=== PATIENT | female | born 1950 ===

== ENCOUNTER 2022-10-31 22:19 | Inpatient (IN) | payer MEDICARE, SELFPAY ==
[2022-10-31] VITALS (11 sets, daily range): PULSE 66–95; RESP 21–28; TEMP 36.6; O2SAT 93–97
--- NOTE | ~2022-10-31 | US_ITS ---
EXAMINATION: US venous doppler [facility] DATE: 11/01/2022 12:53 INDICATION: Hypoxia with dyspnea. TECHNIQUE: Grayscale ultrasound images without and with compression and Doppler ultrasound images of the bilateral lower extremity veins were obtained. COMPARISON: None. FINDINGS: The visualized portions of right common femoral vein, profunda (deep) femoral vein, femoral vein, pop liteal vein, posterior tibial veins, peroneal veins, gastrocnemius vein and greater saphenous vein ou tflow are patent. The visualized portions of left common femoral vein, profunda femoral vein, femoral vein, popliteal v ein, posterior tibial veins, peroneal veins, gastrocnemius vein and greater saphenous vein outflow ar e patent. IMPRESSION: 1. No deep venous thrombosis in either lower limb. Reviewed, dictated and finalized at location A. S OFFICE ASSISTANT
--- NOTE | ~2022-10-31 | XR_ITS ---
EXAMINATION: XR chest 1V portable INDICATION: Decreased breath sounds on the right TECHNIQUE: Portable AP chest at 1220 hours COMPARISON: 10/31/2022 FINDINGS: Bibasilar airspace opacities persist without significant change. No pleural effusion or pne umothorax. The heart size is normal. IMPRESSION: 1. Stable bibasilar airspace opacities, consistent with atelectasis versus pneumonia. Reviewed, dictated and finalized at location L. NS SERVICE CONDUCTOR IMPRESSION: 1. Stable bibasilar airspace opacities, consistent with atelectasis versus pneu monia.
--- NOTE | ~2022-10-31 | CT_ITS ---
EXAMINATION: CT chest abdomen pelvis w con DATE: 11/01/2022 02:12 INDICATION: Hypoxia. Free intraperitoneal gas. TECHNIQUE: Computed tomography (CT) of the chest, abdomen, and pelvis was performed with 100 mL Omnip aque 350 intravenous contrast. Automated exposure control and iterative reconstruction technique were employed. The dose-length product was 1057.40 mGy-cm. COMPARISON: Chest single view 10/31/2022 FINDINGS: CHEST CT: There is mild atelectasis in the upper lobes. There are airspace opacities in the lower lobes with vo lume loss, likely atelectasis. No pleural effusion. There are nodules in the right thyroid lobe measu ring up to at least 18 mm. There is total occlusion of left common carotid artery. There are no patho logically enlarged lymph nodes. The heart size is normal. There are coronary artery calcifications. N o pericardial effusion. There is mild thoracic spondylosis. ABDOMEN/PELVIS CT: The liver, gallbladder, spleen, pancreas, adrenal glands, and kidneys are normal. There is diverticul osis of the colon without evidence of diverticulitis. There is a gastrostomy tube in expected positio n. There are no dilated loops of bowel. The appendix is normal. There is free intraperitoneal gas in the anterior abdomen. There is moderate stenosis of celiac axis and mild stenosis of superior mesente ignacio artery. There is no significant stenosis of inferior mesenteric artery. There are no pathological ly enlarged lymph nodes. There is no free intraperitoneal fluid. There is a benign bone island in rig ht pelvis. There is mild lumbar spondylosis. There is a sclerotic lesion in L1 vertebral body, most l ikely a hemangioma. IMPRESSION: 1. Airspace opacities in the lungs with volume loss, worst in the lower lobes, likely atelectasis. Pn eumonia cannot be excluded. 2. Free intraperitoneal gas, likely secondary to the gastrostomy tube. 3. Multinodular goiter. Consider thyroid ultrasound for risk stratification. 4. 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 Reviewed, dictated and finalized at location A. ARY MEDIA SPECIALIST IMPRESSION: 1. Airspace opacities in the lungs with volume loss, worst in the lower lobes, likely atelectasis. Pneumonia cannot be excluded. 2. Free intraperitoneal gas, likely secondary to the gastrostomy tube. 3. Multinodular goiter. Consider thyroid ultrasound for risk stratification. 4. 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
--- NOTE | ~2022-10-31 | XR_ITS ---
EXAMINATION: XR chest 1V portable Exam Date/Time: 10/31/2022 22:55 LINE FISHER HISTORY: dyspnea/OSBALDO. HX HTN Comparison: None available. RESULT: Lines, tubes, and devices: None. Lungs and pleura: Low lung volumes with crowding and streaky bibasilar opacities. Mild diffuse inter stitial pattern. Cardiomediastinal silhouette: Unremarkable. Other: Curvilinear gas collections under both hemidiaphragms. No acute osseous finding. IMPRESSION: Pneumoperitoneum. Senescent change versus mild interstitial edema, with bibasilar atelectasis. Results reported telephonically to Dr. Elizondo by Dr. Arellano at 11:03 PM on 10/31/2022. Reviewed, dictated and finalized at location K. FISHER IMPRESSION: Pneumoperitoneum. Senescent change versus mild interstitial edema, with bibasil ar atelectasis. Results reported telephonically to Dr. Elizondo by Dr. Arellano at 11:03 PM on 2022.
--- NOTE | 2022-10-31 22:24 | ECG_ITS ---
Measurements Intervals [place] Rate: 92 P: 23 WV: 133 QRS: 37 QRSD: 83 T: 34 QT: 324 QTc: 402 Interpretive Statements SINUS RHYTHM NONSPECIFIC T-WAVE ABNORMALITY- DIFFUSE LEADS BASELINE WANDER- V1-V4 BORDERLINE ECG NO PREVIOUS ECG AVAILABLE FOR COMPARISON Electronically Signed On 11-01-2022 6:44:39 MICROFICHE DUPLICATOR by Juan Johnson D.O.
--- NOTE | 2022-10-31 22:41 | PC.NURSE ---
Nash Velásquez called at this time and voicemail to call hospital back [place] at this time.
--- NOTE | 2022-10-31 22:45 | PC.NURSE ---
Noe Velásquez, sibling, voicemail left and Rosa Arora, sibling called at this time, no voicemailbox available for Rosa.
[2022-10-31 22:55] LABS: Basophils Absolute Auto 0.1 K/mm3 (0.0-0.1); Basophils Percent Auto 0.6 % (0.2-1.2); Eosinophils Absolute Auto 0.1 K/mm3 (0-0.3); Hematocrit 43.5 % (37.0-47.0); Hemoglobin 13.7 g/dL (12.0-15.0); Immature Granulocyte Absolute 0.05 K/mm3 (0.00-0.031); Immature Granulocyte Percent A 0.5 % (0-0.5); Lymphocytes Absolute Auto 1.03 K/mm3 (0.9-3.2); Lymphocytes Percent Auto 9.4 % (18.3-44.2); Mean Corpuscular HGB Conc 31.5 g/dl (32-36); Mean Platelet Volume 10.3 fl (7.4-10.4); Monocytes Absolute Auto 0.8 K/mm3 (0.1-0.6); Monocytes Percent Auto 7.5 % (2.6-8.5); Neutrophils Absolute Auto 8.9 K/mm3 (1.3-6.7); Platelet Count Result 292 k/mm3 (150-375); Red Blood Count 4.73 M/mm3 (4.2-5.4); Red Cell Distribution Width 13.7 % (11.5-14.5)
--- NOTE | 2022-10-31 23:04 | PC.NURSE ---
Noe Velásquez called back at this time, gave pt update status and received info that Brothdora Jimenez is medical POA of pt. [phone] called and voicemail left at this time.
[2022-10-31 23:05] LABS: Alveolar/Arterial O2 Gradient 577.8 mmHg; Base Excess ABG 4.4 mEq/l (+/-2.0); Carboxyhemoglobin 0.3 % THb (0-2.0); Device NON-INVASIVE VENT; Fractional Inspired Oxygen 100 %; HCO3 ABG 29.7 mEq/l (22.0-26.0); Methemoglobin ABG 0.3 %THb (0-1.5); Modified Allen's Test Unable to perform; Oxygen Content ABG 18.7 %vol (16.0-22.0); Oxygen Saturation ABG 96.8 % (95.0-100.0); Oxyhemoglobin 95.4 % THb (90.0-100.0); PCO2 ABG 46.8 mmHg (35.0-45.0); PO2 ABG 88.4 mmHg (80.0-100.0); PO2 FiO2 Ratio Arterial Blood 0.88 %; Site Drawn RIGHT RADIAL; Total Hemoglobin 13.9 g/dL (12.0-18.0)
[2022-10-31 23:06] LABS: Non-Invasive Expiratory Pressure 5 CMH2O; Non-Invasive Inspiratory Pressure 10 CMH2O; Non-Invasive Vent Rate 16 /MIN
[2022-10-31 23:06] LABS: Magnesium 2.2 mg/dL (1.6-2.3)
--- NOTE | 2022-10-31 23:13 | PC.NURSE ---
Tony Sage's called hospital back and pt update given. This nurse spoke with staff at [facility] and provided fax number for pt info to be sent to hospital at this time. Dr. Elizondo giving pt update over telephone at this time.
[2022-10-31 23:32] LABS: Alanine Aminotransferase 30 U/L (6-35); Albumin Level 3.9 g/dL (3.5-5.1); Alkaline Phosphatase 88 U/L (38-126); Anion Gap 6 mmol/L (8-16); Aspartate Amino Transferase 32 U/L (14-36); Bilirubin,Total 0.7 mg/dL (0.2-1.3); Blood Urea Nitrogen 22 mg/dL (7-17); Calcium 8.7 mg/dL (8.4-10.2); Carbon Dioxide 30 mmol/L (22-30); Chloride 105 mmol/L (98-107); Estimated Glomerular Filt Rate > 60; Glucose 161 mg/dL (65-110); Sodium 141 mmol/L (137-145)
[2022-10-31 23:40] LABS: NT Pro B Type Natriuretic Pept 158 pg/mL (19.9-100)
[2022-10-31 23:50] LABS: Influenza A QL RT-PCR Negative (Negative); Influenza B QL RT-PCR Negative (Negative); RSV RNA, RT-PCR Negative (Negative); SARS-CoV-2 RNA PCR Negative
[2022-11-01] VITALS (42 sets, daily range): BP systolic 87–123; BP diastolic 42–104; PULSE 65–84; RESP 14–33; TEMP 37–37.7; O2SAT 58–97; BMI 26.9
--- NOTE | 2022-11-01 00:12 | ED.SOB ---
HPI - SOB/Dyspnea General Chief Complaint: Shortness of Breath/Dyspnea Stated Complaint: DIFFICULTY IN BREATHING, LOW SPO2% Time Seen by Provider: 10/31/22 22:22 History of Present Illness HPI Narrative: 72-year-old female with a history of recent MCA presenting with increased difficulty breathing, [facility]. Patient able to communicate that she is having some trouble breathing, however no chest pain or abdominal pain. Related Data Allergies Allergy/AdvReac Type Severity Reaction Status Date / Time erythromycin base Allergy Itching Verified 10/31/22 23:16 Review of Systems Review of Systems: CONST: No fever. HEENT: No sore throat C/V: No chest pain RESP: Difficulty breathing GI: No abdominal pain : No dysuria. M/S: No joint pain. SKIN: No rash. NEURO: [No headache] PSYCH: [No depression] [facility] Past Medical History Medical History (Updated 11/01/22 @ 03:40 by Rose Elizondo MD) Dementia Depression Hyperlipidemia Hypertension Ischemic stroke Type 2 diabetes mellitus with hyperglycemia Surgical History Surgical History (Updated 11/01/22 @ 02:52 by Rose Elizondo MD) Status post insertion of percutaneous endoscopic gastrostomy (PEG) tube Social History Social History Smoking status: Former smoker Exam Narrative: EXAMINATION OF ORGAN SYSTEMS/BODY AREAS: Constitutional: Vital signs per nursing GENERAL: Tachypneic, dypsneic HEAD: Normal with no signs of head trauma. EYES: conjunctiva normal ENT: Hearing grossly intact LUNGS: Rhonchi bilaterally with labored respirations HEART: [Regular rate and rhythm] ABD: [Soft], [nontender to palpation], no distension, PEG tube in place EXT: Left sided weakness SKIN: [No rashes or lesions.] NEURO: [Alert.] PSYCH: Normal affect Course Vital Signs Vital signs: Vital Signs Temperature 97.8 F 10/31/22 22:25 Pulse Rate 90 10/31/22 22:25 Respiratory Rate 28 H 10/31/22 22:25 Pulse Oximetry 96 10/31/22 22:25 Oxygen Delivery Non-Rebreather Mask 10/31/22 22:25 Oxygen Flow Rate 10 10/31/22 22:25 Temperature 97.8 F 10/31/22 22:25 Pulse Rate 79 11/01/22 03:05 Respiratory Rate 25 H 11/01/22 03:05 Blood Pressure 88/59 L 11/01/22 02:46 Pulse Oximetry 90 11/01/22 01:47 Oxygen Delivery High Flow Therapy with Nasal Cannula 11/01/22 01:47 Oxygen Flow Rate 60 11/01/22 01:47 Fraction of Inspired Oxygen 92 11/01/22 01:47 MDM - SOB/Dyspnea MDM Narrative Medical decision making narrative: Further information obtained from EMS, EMR from prior hospitalization, and family collateral. 72-year-old female presenting with difficulty breathing, was quite hypoxic when she arrived, I did initially immediately start her on BiPAP with immediate improvement in her symptoms. Differential included pneumonia, aspiration pneumonitis, other infection such as UTI or intra-abdominal etiology, less concern for PE without DVT symptoms or chest pain. EKG - 12-Lead: Performed at 2225. Interpreted by me. [Sinus rhythm]. Rate 92. [Normal] axis. NJ-interval [normal]. QRS duration [normal]. QTc [normal]. [No ST segment elevation or depression]. [T-wave normal]. Impression: No EKG evidence of acute ischemia or dysrhythmia. Chest x-ray on my interpretation at bedside showed free air under the diaphragm, she did recently have a PEG tube so I suspect this is the cause but given her extreme distress I will obtain CT for characterization, and switch her to high flow nasal cannula; also immediately called general surgeon on-call. I did call and speak with her DPOA, Tony Jerry, who stated that per recent paperwork they had drawn up, she wanted to be kept comfortable and did not want any invasive procedures or anything to keep her alive through artificial means. To clarify, she is DNR/DNI. CT shows right lower lobe/left lower lobe consolidation concerning for possible aspiration versus pneumonia. CT abdo
[2022-11-01] MEDS: LACTATED RINGERS 1,000 ML 999 ML IV CONT (01:19)
[2022-11-01] MEDS: metroNIDAZOLE 500 MG/ISO 100ML 500 MG/100 ML BAG 100 MG IVPB ×2 (02:57→12:17)
--- NOTE | 2022-11-01 06:31 | ADMGEN ---
This patient, Marah Jerry, was admitted to Intensive Care Unit-1 at 0523. Patient/family oriented to hospital policies and general routines including ID bracelet, bed and alarms, visiting hours, pain management, procedures, bathroom and other care routines, personal items, smoking policy, room service/diet, and visiting hours. Information on how to activate the Rapid Response Team has been discussed. Patient/Family are encouraged to report perceived risks to care and to ask questions if they do not understand what they are told or what they should do.
--- NOTE | 2022-11-01 07:50 | PM.IMHP ---
H&P: HPI History of Present Illness Date/Time: 11/01/22 07:50 Chief Complaint: Difficulty breathing Narrative: 72 y/o F with PMH significant for schizophrenia, HTN, HLD, DM, depression, h/o recent MCA CVA leaving her npo and G-tube dependent is p/w SOB found to be hypoxic in the ER and improved on BIPAP. She is currently on 60L 95%FiO2 and satting 90%. She is DNR/DNI. She was started on vancomycin, cefepime and Flagyl in the ER, these will be continued. She was recently discharged to the rehab facility on October 31, 2022 after her stroke where she was taken care of at [facility] from Oct 23-. Based on the H&P from the rehab facility on October 31, the patient was PEG tube dependent, nonresponsive to questioning, and followed commands intermittently upon arrival. Of note, she was treated for aspiration pneumonia after her left MCA stroke at [facility] with Rocephin and Flagyl. Further records from [facility] pending, unable to find start and end date of antibiotics from that time. Chest x-ray in the ER showed pneumoperitoneum likely secondary to PEG tube placement as well as interstitial edema and atelectasis. CT of chest abdomen and pelvis showed volume loss in the bilateral lower lobes concerning for atelectasis versus pneumonia, multinodular goiter and total occlusion of left common carotid artery. Labs were significant for a white count of 11, ABG that was essentially normal, she was negative for flu, RSV and COVID. D-dimer pending. Review of Systems Review of Systems: ROS unobtainable: Yes unobtainable due to mental status PMFSH Past Medical History Medical History Dementia Depression Hyperlipidemia Hypertension Ischemic stroke Type 2 diabetes mellitus with hyperglycemia Surgical History Surgical History Status post insertion of percutaneous endoscopic gastrostomy (PEG) tube Family History Family History Other Unknown family medical history Social History Social History Smoking status: Former smoker Alcohol intake: unknown Substance use: unknown Spiritual care concerns: No Meds Home Medications and Allergies Home Medications Medication Instructions Recorded Confirmed Type amlodipine 10 mg tablet (Norvasc) 10 mg feeding tube DAILY 11/01/22 11/01/22 History aspirin 81 mg tablet,delayed 81 mg feeding tube DAILY 11/01/22 11/01/22 History release (Adult Low Dose Aspirin) atorvastatin 80 mg tablet 80 mg feeding tube HS 11/01/22 11/01/22 History carvedilol 25 mg tablet 25 mg feeding tube BID 11/01/22 11/01/22 History donepezil 10 mg tablet 10 mg feeding tube DAILY 11/01/22 11/01/22 History ipratropium 0.5 mg-albuterol 3 mg 3 ml inhalation Q4H PRN Shortness 11/01/22 11/01/22 History (2.5 mg base)/3 mL nebulization Of Breath Or Wheezing soln lisinopril 20 mg tablet 20 mg feeding tube DAILY 11/01/22 11/01/22 History Allergies Allergy/AdvReac Type Severity Reaction Status Date / Time erythromycin base Allergy Itching Verified 10/31/22 23:16 Vital Signs Vital Signs - 24 hr 10/31/22 22:25 10/31/22 22:28 10/31/22 22:28 Temperature 97.8 F Pulse Rate 90 85 Respiratory Rate 28 H Blood Pressure Pulse Oximetry 96 93 Oxygen Delivery Non-Rebreather Mask Non-Rebreather Mask Oxygen Flow Rate 10 10 Fraction of Inspired Oxygen 10/31/22 22:52 11/01/22 00:16 11/01/22 01:47 Temperature Pulse Rate 81 Respiratory Rate 28 H Blood Pressure Pulse Oximetry 96 97 90 Oxygen Delivery BiPAP High Flow Nasal Cannula High Flow Therapy with Na Oxygen Flow Rate 10 60 Fraction of Inspired Oxygen 92 10/31/22 22:26 10/31/22 22:33 10/31/22 22:45 Temperature Pulse Rate 95 82 83 Respi
[2022-11-01] MEDS: FUROSEMIDE INJ 40 MG/4 ML VIAL IV PUSH (08:27)
[2022-11-01] MEDS: ASPIRIN 81 MG CHEWABLE TABLET FEED TUBE (08:27)
[2022-11-01 08:36] LABS: Basophils Absolute Auto 0.1 K/mm3 (0.0-0.1); Basophils Percent Auto 0.4 % (0.2-1.2); Eosinophils Percent Auto 0.2 % (0-4.4); Hematocrit 38.2 % (37.0-47.0); Hemoglobin 12.4 g/dL (12.0-15.0); Immature Granulocyte Absolute 0.03 K/mm3 (0.00-0.031); Immature Granulocyte Percent A 0.3 % (0-0.5); Lymphocytes Absolute Auto 0.98 K/mm3 (0.9-3.2); Lymphocytes Percent Auto 8.5 % (18.3-44.2); Mean Corpuscular HGB Conc 32.5 g/dl (32-36); Mean Corpuscular Hemoglobin 28.5 pg (26-34); Mean Corpuscular Volume 87.8 fl (80-100); Mean Platelet Volume 10.2 fl (7.4-10.4); Monocytes Percent Auto 8.6 % (2.6-8.5); Neutrophils Absolute Auto 9.5 K/mm3 (1.3-6.7); Platelet Count Result 274 k/mm3 (150-375); Red Blood Count 4.35 M/mm3 (4.2-5.4); Red Cell Distribution Width 13.9 % (11.5-14.5); White Blood Count 11.6 K/mm3 (4.5-10.0)
[2022-11-01 08:52] LABS: Alanine Aminotransferase 27 U/L (6-35); Albumin Level 3.6 g/dL (3.5-5.1); Alkaline Phosphatase 67 U/L (38-126); Anion Gap 5 mmol/L (8-16); Aspartate Amino Transferase 27 U/L (14-36); Bilirubin,Total 0.4 mg/dL (0.2-1.3); Blood Urea Nitrogen 22 mg/dL (7-17); Calcium 8.6 mg/dL (8.4-10.2); Carbon Dioxide 33 mmol/L (22-30); Chloride 101 mmol/L (98-107); Estimated CRCL calculation 61 ml/min; Estimated Glomerular Filt Rate > 60; Glucose 177 mg/dL (65-110); Potassium 3.8 mmol/L (3.4-5.0); Sodium 139 mmol/L (137-145)
[2022-11-01] MEDS: PANTOPRAZOLE SODIUM IV 40 MG VIAL IV PUSH (09:14)
[2022-11-01] MEDS: DONEPEZIL HCL 10 MG TABLET FEED TUBE (09:14)
[2022-11-01] MEDS: ENOXAPARIN 40 MG/0.4 ML SYRINGE SUB-Q (09:15)
[2022-11-01 09:36] LABS: D Dimer 2.78 ug/mL (<0.48)
[2022-11-01] MEDS: methylPREDNISolone SOD SUCC 125 MG VIAL 60 MG IV PUSH (12:18)
--- NOTE | 2022-11-01 12:53 | PM.CNPUL ---
Assessment and Plan Assessment and plan (1) Acute respiratory failure with hypoxia: Code(s): J96.01 - Acute respiratory failure with hypoxia Status: Acute Assessment and Plan: Patient with a recent stroke, dysphagia status post PEG on 10/27/2022, chest x-ray with bibasilar infiltrates and now with hypoxemic respiratory failure. Etiology of hypoxemic respiratory failure includes aspiration, aspiration pneumonia, healthcare associated pneumonia, and less likely pulmonary embolism. Agree with vancomycin, cefepime and Flagyl. The patient has no cough and cannot expectorate and the nurse has been doing deep suction. There is no mucus plugging on the most recent chest x-ray. her D-dimer is high at 2.78, she has negative lower extremity Dopplers. I have a low clinical suspicion for PE. Will discuss with Neurology the risk benefit analysis for empiric anticoagulation. I spoke with the POA at the bedside,Tony, and the patient is doing not resuscitate code status. Currently the patient is on high-flow nasal cannula 60 L, 93% FiO2 with an over line non-rebreather mask at 15 L with saturations 90%. At this time would continue these settings but if she has worsening hypoxemia would place her on BiPAP even with a free air from her recent PEG tube. I did speak with the POA regarding options of care at this time which include continuation of the current oxygen delivery device, BiPAP and discontinuation of all oxygen and making her comfort measures. He will discuss these options with the remainder of the family and let us know if they have come to a decision. Will follow with you. History of Present Illness History of Present Illness Consult date: 11/01/22 Chief complaint: Aspiration PNA/Hypoxic Narrative: 11/01/2022: This is a new pulmonary consult for hypoxemic respiratory failure. 72-year-old woman with a history of schizophrenia, dementia, diabetes mellitus type 2, hypertension, hyperlipidemia and a right MCA stroke treated at [facility] from 10/22/2022 through 10/30/2022. I have spoken with the p.o. a day any and he tells me that the patient had a left hemiparesis, could not swallow and a PEG tube was placed on 10/25/2022. The patient left [facility] on oxygen but he does not know the level. The patient could not move her left upper extremity and says he that maybe she could move her left foot at [facility]. She could not speak and communicated with blinking and shaking her head. Patient presented to [facility] Emergency Department on 10/3112/10/2021 for difficulty breathing and hypoxemic respiratory failure. The patient had rhonchi bilaterally was on 10 L non-rebreather mask with saturations 96%. BiPAP was started immediately Blood gas on BiPAP 10/5 with 100% with pH of 7.42/47/[address] of the abdomen and pelvis showed intraperitoneal air without pathology. Chest x-ray showed bibasilar infiltrates. Her white blood cell count was 11.0, creatinine was 0.6. patient was admitted to the IMU and treated with vancomycin, cefepime and Flagyl. With a free air in her abdomen she was converted to high-flow nasal cannula 60 L 93% with an overlying non-rebreather mask at 15 L. 11/01 currently the patient is on high-flow nasal cannula 60 L, 93% with an overlying non-rebreather mask on 15 L with saturations 90%. The patient is in no respiratory distress and denies any chest pain or difficulty breathing. Review of Systems Review of Systems: ROS unobtainable: Yes unobtainable due to medical condition [facility] Past Medical History Medical History Dementia Depression Hyperlipidemia Hypertension Ischemic stroke Type 2 diabetes mellitus with hyperglycemia Surgical History Surgical History Status post insertion of percutaneous endoscopic gastrostomy (P
[2022-11-01] MEDS: IPRATROPIUM BR 0.02% INH SOLN 0.5 MG/2.5 ML VIAL INHALATION (13:14)
[2022-11-01] MEDS: ALBUTEROL SULFATE NEB 2.5 MG/3 ML INH INHALATION (13:15)
[2022-11-01] MEDS: MORPHINE SULFATE INJ (*CRX) 10 MG/ML AMP 5 MG IV PUSH (16:02)
[2022-11-01] MEDS: LORazepam INJ (*CRX) 2 MG/ML VIAL IV PUSH ×2 (16:04→19:58)
[2022-11-01] MEDS: MORPHINE SULFATE (*CRX) 2 MG/ML INJ IV PUSH ×3 (16:37→18:00)
[2022-11-02] MEDS: MORPHINE SULFATE (*CRX) 2 MG/ML INJ IV PUSH ×2 (00:08→12:20)
[2022-11-02 08:00] VITALS: PULSE 96; RESP 18; O2SAT 60
--- NOTE | 2022-11-02 08:54 | PM.DS ---
DS: Admitting Diagnosis Discharge Date 11/03/22 Admitting Diagnosis sob DS: Discharge Diagnosis Discharge Diagnosis (1) Acute respiratory failure with hypoxia: Code(s): J96.01 - Acute respiratory failure with hypoxia Status: Acute (2) Aspiration pneumonia: Code(s): J69.0 - Pneumonitis due to inhalation of food and vomit Status: Acute (3) Ischemic stroke: Code(s): I63.9 - Cerebral infarction, unspecified Status: Acute (4) Hyperlipidemia: Code(s): E78.5 - Hyperlipidemia, unspecified Status: Acute (5) Type 2 diabetes mellitus with hyperglycemia: Code(s): E11.65 - Type 2 diabetes mellitus with hyperglycemia Status: Acute (6) Hypertension: Code(s): I10 - Essential (primary) hypertension Status: Acute (7) Dementia: Code(s): F03.90 - Unspecified dementia, unspecified severity, without behavioral disturbance, psychotic disturbance, mood disturbance, and anxiety Status: Acute (8) Depression: Code(s): F32.A - Depression, unspecified Status: Acute (9) Dysphagia: Code(s): R13.10 - Dysphagia, unspecified Status: Acute DS: Summary Hospital Course Hospital Course: 72-year-old woman with a history of schizophrenia, dementia, diabetes mellitus type 2, hypertension, hyperlipidemia and a right MCA stroke treated at [facility]. She could not speak and communicated with blinking and shaking her head. Patient presented to [facility] Emergency Department on 10/3112/10/2021 for difficulty breathing and hypoxemic respiratory failure.?The patient was on high-flow nasal cannula 60 L, 93% with an overlying non-rebreather mask on 15 L with saturations 90%.? The patient is in no respiratory distress and denies any chest pain or difficulty breathing. Family opted for hospice care and oxygen support was withdrawn with comfort care measures initiated. Time Spent with Patient Time attestation: Total time spent providing and/or coordinating discharge services: DS: Data Data Completed and Pending Labs on day of discharge: Labs from last 24 hours 11/01/22 09:04 D-Dimer 2.78 H Preliminary micro results at discharge 10/31/22 22:47 Blood Culture - Preliminary Blood 11/01/22 00:15 Blood Culture - Preliminary Blood Discharge Plan Discharge Attending physician on discharge: Mariely Hardy Consulting providers: John Crowell Discharging Clinician: Mariely Hardy Patient Disposition: Hospice - Medical Facility Patient Instructions: Enoxaparin (By injection), Ischemic Stroke (DC) Stand Alone Forms: General Discharge Information Discharge Medications: Discontinued atorvastatin 80 mg Tablet 80 mg feeding tube HS carvedilol 25 mg Tablet 25 mg feeding tube BID ipratropium-albuterol 0.5 mg-3 mg(2.5 mg base)/3 mL Solution For Nebulization 3 ml INHALATION Q4H PRN (Reason: Shortness Of Breath Or Wheezing) donepezil 10 mg tablet 10 mg feeding tube DAILY lisinopril 20 mg Tablet 20 mg feeding tube DAILY aspirin [Adult Low Dose Aspirin] 81 mg Tablet,Delayed Release (Dr/Ec) 81 mg feeding tube DAILY amlodipine [Norvasc] 10 mg Tablet 10 mg feeding tube DAILY Date of admission: 11/01/22 03:40 Primary Care Provider: Alessandro,Louis Jarrett Admitting Provider: Karo Sargent V. Attending physician on admission: Karo Sargent V. Condition: Critical
[2022-11-02 12:00] VITALS: BP 150/75; PULSE 100; RESP 22; TEMP 36.2; O2SAT 56
--- NOTE | 2022-11-02 13:15 | PC.NURSE ---
This patient, Marah Jerry, was transferred to [facility] on 11/02/22 at 1330. Personal belongings sent with patient. Report given to Kathleen. Appropriate documentation sent with patient.
[2022-11-02 15:23] VITALS: BP 151/84; PULSE 102; RESP 22; TEMP 35.7; O2SAT 87
--- NOTE | 2022-11-02 16:29 | PM.IMPN ---
Progress Note: A&P Assessment and Plan (1) Acute respiratory failure with hypoxia: Code(s): J96.01 - Acute respiratory failure with hypoxia Status: Acute Assessment and Plan: Continue end of life care Morphine and ativan as needed Scopolamine patch Atropine as needed Lidoderm patch (2) Aspiration pneumonia: Code(s): J69.0 - Pneumonitis due to inhalation of food and vomit Status: Acute (3) Ischemic stroke: Code(s): I63.9 - Cerebral infarction, unspecified Status: Acute (4) Hyperlipidemia: Code(s): E78.5 - Hyperlipidemia, unspecified Status: Acute (5) Type 2 diabetes mellitus with hyperglycemia: Code(s): E11.65 - Type 2 diabetes mellitus with hyperglycemia Status: Acute (6) Hypertension: Code(s): I10 - Essential (primary) hypertension Status: Acute (7) Dementia: Code(s): F03.90 - Unspecified dementia, unspecified severity, without behavioral disturbance, psychotic disturbance, mood disturbance, and anxiety Status: Acute (8) Depression: Code(s): F32.A - Depression, unspecified Status: Acute (9) Dysphagia: Code(s): R13.10 - Dysphagia, unspecified Status: Acute Subjective Date/time seen: 11/02/22 16:29 Interval history: Patient unresponsive, brow somewhat furrowed. No other concerns, family at bedside. Review of Systems Review of Systems: ROS unobtainable: Yes unobtainable due to mental status Exam Narrative: General: Unresponsive HEENT: Atraumatic, normocephalic, mucous membranes moist CV: Tachycardic Lungs: Agonal breathing, coarse breath sounds throughout Abdomen: Nondistended, hypoactive bowel sounds Extremities: No mottling nor edema noted Objective Data Vital Signs Vital Signs: Vital Signs - 24 hr 11/01/22 17:30 11/01/22 20:00 11/01/22 20:00 Temperature 99.9 F H Pulse Rate 83 84 Respiratory Rate 14 14 Blood Pressure Pulse Oximetry 60 L 58 L 58 L Oxygen Delivery Room Air Room Air Fraction of Inspired Oxygen 58 11/02/22 08:00 11/02/22 08:00 11/02/22 12:00 Temperature 97.1 F L Pulse Rate 96 96 100 Respiratory Rate 18 18 22 H Blood Pressure 150/75 H Pulse Oximetry 60 L 60 L 56 L Oxygen Delivery Room Air Fraction of Inspired Oxygen 11/02/22 15:23 Temperature 96.3 F L Pulse Rate 102 H Respiratory Rate 22 H Blood Pressure 151/84 H Pulse Oximetry 87 L Oxygen Delivery Fraction of Inspired Oxygen Intake/Output Intake/Output: Intake & Output 10/30/22 10/31/22 11/01/22 11/02/22 23:59 23:59 23:59 23:59 Intake Total 800 Output Total 1050 250 Balance -250 -250 Meds/Results Medications: Active Medications Generic Name Dose Route Start Last Admin Trade Name Freq PRN Reason Stop Dose Admin Atropine Sulfate 1 - 2 drop 11/01/22 15:42 Atropine Sulfate 1% Ophth Soln 5 Ml Bottle SUBLINGUAL Q4H PRN Secretions Lorazepam 2 mg 11/01/22 15:42 11/01/22 19:58 Lorazepam Inj (*Crx) 2 Mg/Ml Vial IV PUSH 2 mg Q2H PRN Administration Anxiety/Comfort Morphine Sulfate 2 mg 11/01/22 15:42 11/02/22 12:20 Morphine Sulfate (*Crx) 2 Mg/Ml Inj IV PUSH 2 mg Q30M PRN Administration COMFORT Radiology Results: ITS Impressions Chest/Abdomen/Pelvis CT 11/01/22 06:57 IMPRESSION: 1. Airspace opacities in the lungs with volume loss, worst in the lower lobes, likely atelectasis. Pneumonia cannot be excluded. 2. Free intraperitoneal gas, likely secondary to the gastrostomy tube. 3. Multinodular goiter. Consider thyroid ultrasound for risk stratification. 4. 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 Chest X-Ray 11/01/22 12:26 IMPRESSION: 1. Stable bibasilar airspace opacities, consistent with atelectasis versus pneumonia. Venous Doppler Study 11/01/22 12:58 IMPRESSION: 1. No deep venous thrombosis in either lower limb.
[2022-11-02 20:00] VITALS: BP 136/84; PULSE 121; RESP 37; TEMP 36.8; O2SAT 74; O2SAT 87
[2022-11-03] MEDS: MORPHINE SULFATE (*CRX) 2 MG/ML INJ IV PUSH (05:12)
[2022-11-03 08:00] VITALS: O2SAT 74
--- NOTE | 2022-11-03 08:19 | PM.IMPN ---
Progress Note: A&P Assessment and Plan (1) Acute respiratory failure with hypoxia: Code(s): J96.01 - Acute respiratory failure with hypoxia Status: Acute Assessment and Plan: Continue end of life care Morphine and ativan as needed Scopolamine patch Atropine as needed Lidoderm patch (2) Aspiration pneumonia: Code(s): J69.0 - Pneumonitis due to inhalation of food and vomit Status: Acute (3) Ischemic stroke: Code(s): I63.9 - Cerebral infarction, unspecified Status: Acute (4) Hyperlipidemia: Code(s): E78.5 - Hyperlipidemia, unspecified Status: Acute (5) Type 2 diabetes mellitus with hyperglycemia: Code(s): E11.65 - Type 2 diabetes mellitus with hyperglycemia Status: Acute (6) Hypertension: Code(s): I10 - Essential (primary) hypertension Status: Acute (7) Dementia: Code(s): F03.90 - Unspecified dementia, unspecified severity, without behavioral disturbance, psychotic disturbance, mood disturbance, and anxiety Status: Acute (8) Depression: Code(s): F32.A - Depression, unspecified Status: Acute (9) Dysphagia: Code(s): R13.10 - Dysphagia, unspecified Status: Acute Subjective Date/time seen: 11/03/22 08:19 Interval history: Patient unresponsive, brow somewhat furrowed. No other concerns, family at bedside. Exam Narrative: General: Unresponsive HEENT: Atraumatic, normocephalic, mucous membranes moist CV: Tachycardic Lungs: Agonal breathing, coarse breath sounds throughout Abdomen: Nondistended, hypoactive bowel sounds Extremities: No mottling nor edema noted Objective Data Vital Signs Vital Signs: Vital Signs - 24 hr 11/02/22 12:00 11/02/22 15:23 11/02/22 20:00 Temperature 97.1 F L 96.3 F L Pulse Rate 100 102 H Respiratory Rate 22 H 22 H Blood Pressure 150/75 H 151/84 H Pulse Oximetry 56 L 87 L 87 L Oxygen Delivery Nasal Cannula Oxygen Flow Rate 5 Fraction of Inspired Oxygen 58 11/02/22 20:00 Temperature 98.3 F Pulse Rate 121 H Respiratory Rate 37 H Blood Pressure 136/84 Pulse Oximetry 74 L Oxygen Delivery Oxygen Flow Rate Fraction of Inspired Oxygen Intake/Output Intake/Output: Intake & Output 01/09/1211/01/22 11/02/22 11/03/22 23:59 23:59 23:59 23:59 Intake Total 800 0 Output Total 1050 250 0 Balance -250 -250 0 Meds/Results Medications: Active Medications Generic Name Dose Route Start Last Admin Trade Name Freq PRN Reason Stop Dose Admin Atropine Sulfate 1 - 2 drop 11/01/22 15:42 Atropine Sulfate 1% Ophth Soln 5 Ml Bottle SUBLINGUAL Q4H PRN Secretions Lidocaine 1 patch 11/03/22 09:00 11/03/22 08:02 Lidocaine 5% Patch TRANSDERM Not Given DAILY LENKA Lorazepam 2 mg 11/01/22 15:42 11/01/22 19:58 Lorazepam Inj (*Crx) 2 Mg/Ml Vial IV PUSH 2 mg Q2H PRN Administration Anxiety/Comfort Morphine Sulfate 2 mg 11/01/22 15:42 11/03/22 05:12 Morphine Sulfate (*Crx) 2 Mg/Ml Inj IV PUSH 2 mg Q30M PRN Administration COMFORT Radiology Results: ITS Impressions Chest/Abdomen/Pelvis CT 11/01/22 06:57 IMPRESSION: 1. Airspace opacities in the lungs with volume loss, worst in the lower lobes, likely atelectasis. Pneumonia cannot be excluded. 2. Free intraperitoneal gas, likely secondary to the gastrostomy tube. 3. Multinodular goiter. Consider thyroid ultrasound for risk stratification. 4. 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 Chest X-Ray 11/01/22 12:26 IMPRESSION: 1. Stable bibasilar airspace opacities, consistent with atelectasis versus pneumonia. Venous Doppler Study 11/01/22 12:58 IMPRESSION: 1. No deep venous thrombosis in either lower limb.
== END 2022-11-03 12:16 | disposition hospice, inpatient (51) | DRG 189 ==
LOC: ANHED 11-01 04:22 → ANHICU 11-01 05:35 → ANH3MEDSUR 11-02 14:08
PROVIDERS: Admitting Provider Internal Medicine; Emergency Provider Emergency Medicine; PCP Internal Medicine; Visit Provider Student in an Organized Health Care Education/Training Program
DX: J96.01 Acute respiratory failure with hypoxia (principal); J69.0 Pneumonitis due to inhalation of food and vomit; I69.354 Hemiplegia and hemiparesis following cerebral infarction affecting left non-dominant side; I69.391 Dysphagia following cerebral infarction; R13.10 Dysphagia, unspecified; E11.65 Type 2 diabetes mellitus with hyperglycemia; E78.5 Hyperlipidemia, unspecified; F03.90 Unspecified dementia, unspecified severity, without behavioral disturbance, psychotic disturbance, mood disturbance, and anxiety; F32.A Depression, unspecified; F20.9 Schizophrenia, unspecified; I10 Essential (primary) hypertension; Z87.891 Personal history of nicotine dependence; Z66 Do not resuscitate; Z93.1 Gastrostomy status; Z20.822 Contact with and (suspected) exposure to COVID-19; Z79.82 Long term (current) use of aspirin
CPT/HCPCS: 36415; 36600; 71045; 71260; 74177; 80053; 82375; 82805; 83050; 83735; 83880; 85025; 85380; 87040; 87637; 93005; 93970; 94002; 94640; 96365; 96367; 99285; A9270; C9113; J0692; J1650; J1940; J2060; J2270; J2930; J3370; J7120; Q9967

== ENCOUNTER 2022-11-03 12:17 | HOS | payer OTHER, MEDICARE, SELFPAY ==
[2022-11-03 12:43] VITALS: BMI 26.7
[2022-11-03] MEDS: MORPHINE SULFATE INJ (*CRX) 50 MG in SODIUM CHLORIDE 0.9% IV 95 ML IV CONT (14:04)
[2022-11-03] MEDS: MORPHINE SULFATE (*CRX) 2 MG/ML INJ IV PUSH (14:04)
[2022-11-03] MEDS: diazePAM INJ (*CRX) 10 MG/2 ML SYRINGE 5 MG IV PUSH (14:05)
[2022-11-03] MEDS: GLYCOPYRROLATE INJ (*SP) 0.2 MG/ML VIAL 0.1 MG IV PUSH (14:09)
--- NOTE | 2022-11-03 14:16 | PM.IMHP ---
H&P: HPI History of Present Illness Date/Time: 11/03/22 14:16 Chief Complaint: Uncontrolled dyspnea. Narrative: 72 y/o f w/ hx stroke, hbp, dm2, dementia was admitted 11/01/22 from [facility] with increased dyspnea. [facility] with aphasia and dysphagia and G-tube was placed. CT CAP showed bilateral pulmonary infiltrates. Was treated with Vanc, Flagyl, Cefepime, bipap. Due to DNR status, failure to improve with appropriate care, and multiple comorbidities, family opted for inpatient hospice for symptom management. Review of Systems Review of Systems: ROS unobtainable: Yes unobtainable due to medical condition PMFSH Past Medical History Medical History Dementia Depression Hyperlipidemia Hypertension Ischemic stroke Type 2 diabetes mellitus with hyperglycemia Surgical History Surgical History Status post insertion of percutaneous endoscopic gastrostomy (PEG) tube Family History Family History Other Unknown family medical history Social History Social History Smoking status: Former smoker Alcohol intake: unknown Substance use: unknown Spiritual care concerns: No Meds Home Medications and Allergies Home Medications Medication Instructions Recorded Confirmed Type amlodipine 10 mg tablet (Norvasc) 10 mg feeding tube DAILY 11/01/22 11/01/22 History aspirin 81 mg tablet,delayed 81 mg feeding tube DAILY 11/01/22 11/01/22 History release (Adult Low Dose Aspirin) atorvastatin 80 mg tablet 80 mg feeding tube HS 11/01/22 11/01/22 History carvedilol 25 mg tablet 25 mg feeding tube BID 11/01/22 11/01/22 History donepezil 10 mg tablet 10 mg feeding tube DAILY 11/01/22 11/01/22 History ipratropium 0.5 mg-albuterol 3 mg 3 ml inhalation Q4H PRN Shortness 11/01/22 11/01/22 History (2.5 mg base)/3 mL nebulization Of Breath Or Wheezing soln lisinopril 20 mg tablet 20 mg feeding tube DAILY 11/01/22 11/01/22 History Allergies Allergy/AdvReac Type Severity Reaction Status Date / Time erythromycin base Allergy Itching Verified 10/31/22 23:16 Exam Narrative: Unresponsive to verbal or tactile stimuli. No JVD Chest with coarse BS and scattered crackles Heart NL S1,2 RR Abd BS hypoactive, soft, nontender Extr no CCE MS w/o gross deformity to visual inspection Neuro with right facial droop and hemiplegia Assessment and Plan Assessment and plan (1) Palliative care encounter: Code(s): Z51.5 - Encounter for palliative care Status: Acute Assessment and Plan: Meets inpatient hospice criteria due to requiring continuous IV morphine for control of dyspnea Remainder of palliative regimen as ordered (2) Acute respiratory failure with hypoxia: Code(s): J96.01 - Acute respiratory failure with hypoxia Status: Acute (3) Aspiration pneumonia: Code(s): J69.0 - Pneumonitis due to inhalation of food and vomit Status: Acute (4) Ischemic stroke: Code(s): I63.9 - Cerebral infarction, unspecified Status: Acute (5) Type 2 diabetes mellitus with hyperglycemia: Code(s): E11.65 - Type 2 diabetes mellitus with hyperglycemia Status: Acute (6) Hypertension: Code(s): I10 - Essential (primary) hypertension Status: Acute (7) Dementia: Code(s): F03.90 - Unspecified dementia, unspecified severity, without behavioral disturbance, psychotic disturbance, mood disturbance, and anxiety Status: Acute
[2022-11-03 23:43] VITALS: TEMP 39.2
[2022-11-03] MEDS: ACETAMINOPHEN ELIXIR 325 MG/10.15 ML UDC 1000 MG FEED TUBE (23:43)
[2022-11-04] VITALS (8 sets, daily range): BP systolic 135; BP diastolic 70; PULSE 116; RESP 20; TEMP 36.2–39.7; O2SAT 74
[2022-11-04] MEDS: ACETAMINOPHEN ELIXIR 325 MG/10.15 ML UDC 1000 MG FEED TUBE ×2 (12:24→18:19)
[2022-11-04] MEDS: MORPHINE SULFATE (*CRX) 2 MG/ML INJ IV PUSH (14:11)
[2022-11-04] MEDS: MORPHINE SULFATE INJ (*CRX) 50 MG in SODIUM CHLORIDE 0.9% IV 95 ML IV CONT (16:39)
--- NOTE | 2022-11-04 18:49 | PM.IMPN ---
Progress Note: A&P Assessment and Plan (1) Palliative care encounter: Code(s): Z51.5 - Encounter for palliative care Status: Acute Assessment and Plan: Meets inpatient hospice criteria due to requiring continuous IV morphine for control of dyspnea Remainder of palliative regimen as ordered (2) Acute respiratory failure with hypoxia: Code(s): J96.01 - Acute respiratory failure with hypoxia Status: Acute (3) Aspiration pneumonia: Code(s): J69.0 - Pneumonitis due to inhalation of food and vomit Status: Acute (4) Ischemic stroke: Code(s): I63.9 - Cerebral infarction, unspecified Status: Acute (5) Type 2 diabetes mellitus with hyperglycemia: Code(s): E11.65 - Type 2 diabetes mellitus with hyperglycemia Status: Acute (6) Hypertension: Code(s): I10 - Essential (primary) hypertension Status: Acute (7) Dementia: Code(s): F03.90 - Unspecified dementia, unspecified severity, without behavioral disturbance, psychotic disturbance, mood disturbance, and anxiety Status: Acute Subjective Date/time seen: 11/04/22 18:49 Interval history: Remains comfortable. Family at bedside. Review of Systems Review of Systems: ROS unobtainable: Yes unobtainable due to medical condition Exam Narrative: Unresponsive to verbal or tactile stimuli. No JVD Chest with coarse BS and scattered crackles Heart NL S1,2 RR Abd BS hypoactive, soft, nontender Extr no CCE MS w/o gross deformity to visual inspection Neuro with right facial droop and hemiplegia Objective Data Vital Signs Vital Signs: Vital Signs - 24 hr 11/03/22 20:00 11/03/22 23:43 11/04/22 08:08 Temperature 102.5 F H 99.6 F Pulse Rate Respiratory Rate Blood Pressure Pulse Oximetry Oxygen Delivery Nasal Cannula Oxygen Flow Rate 11/04/22 08:00 11/04/22 11:15 11/04/22 12:24 Temperature 103.3 F H 102.6 F H Pulse Rate 116 H Respiratory Rate 20 Blood Pressure 135/70 Pulse Oximetry 74 L Oxygen Delivery Nasal Cannula Oxygen Flow Rate 5 11/04/22 14:09 11/04/22 14:00 11/04/22 16:05 Temperature 103.4 F H 103.3 F H 97.6 F Pulse Rate Respiratory Rate Blood Pressure Pulse Oximetry Oxygen Delivery Oxygen Flow Rate 11/04/22 18:19 Temperature 100 F H Pulse Rate Respiratory Rate Blood Pressure Pulse Oximetry Oxygen Delivery Oxygen Flow Rate Intake/Output Intake/Output: Intake & Output 11/01/22 11/02/22 11/03/22 11/04/22 23:59 23:59 23:59 23:59 Intake Total 0 60 Output Total 1700 450 Balance -1700 -390 Meds/Results Medications: Active Medications Generic Name Dose Route Start Last Admin Trade Name Freq PRN Reason Stop Dose Admin Acetaminophen 1,000 mg 11/03/22 14:56 11/04/22 18:19 Acetaminophen Elixir 325 Mg/10.15 Ml Udc FEED TUBE 1,000 mg Q6H PRN Administration fever 101 or greater Artificial Tears 1 drop 11/03/22 14:00 Artificial Tears Ophth Soln 15 Ml Bottle EACH EYE Q12H PRN Dry Eye(s) Bisacodyl 10 mg 11/03/22 13:30 Bisacodyl 10 Mg Suppository RECTAL DAILY PRN Constipation Diazepam 5 mg 11/03/22 13:35 11/03/22 14:05 Diazepam Inj (*Crx) 10 Mg/2 Ml Syringe IV PUSH 5 mg Q4H PRN Administration COMFORT Glycopyrrolate 0.1 mg 11/03/22 13:30 11/03/22 14:09 Glycopyrrolate Inj (*Sp) 0.2 Mg/Ml Vial IV PUSH 0.1 mg Q4H PRN Administration secretions Morphine Sulfate 50 mg/ Sodium 100 mls @ 2 mls/hr 11/03/22 14:00 11/04/22 16:39 Chloride IV CONT 1 mg/hr .Q24H LENKA 2 mls/hr Administration 1 MG/HR Morphine Sulfate 2 mg 11/03/22 13:30 11/04/22 14:11 Morphine Sulfate (*Crx) 2 Mg/Ml Inj IV PUSH 2 mg Q2H PRN Administration Pain Prochlorperazine Edisylate 10 mg 11/03/22 13:30 Prochlorperazine Edisylate 10 Mg/2 Ml Vial IV PUSH Q6H PRN Nausea And Vomiting
[2022-11-05 08:00] VITALS: PULSE 78; RESP 12; O2SAT 88
[2022-11-05 08:03] VITALS: BP 107/53; PULSE 78; RESP 12; TEMP 36.2; O2SAT 88
[2022-11-05] MEDS: MORPHINE SULFATE INJ (*CRX) 50 MG in SODIUM CHLORIDE 0.9% IV 95 ML IV CONT (15:03)
[2022-11-05 20:00] VITALS: PULSE 71; PULSE 78; RESP 12; RESP 20; O2SAT 77
[2022-11-06 07:59] VITALS: BP 124/58; PULSE 80; RESP 10; TEMP 36.4; O2SAT 81
--- NOTE | 2022-11-06 12:23 | PM.IMPN ---
Progress Note: A&P Assessment and Plan (1) Palliative care encounter: Code(s): Z51.5 - Encounter for palliative care Status: Acute Assessment and Plan: Meets inpatient hospice criteria due to requiring continuous IV morphine for control of dyspnea Remainder of palliative regimen as ordered (2) Acute respiratory failure with hypoxia: Code(s): J96.01 - Acute respiratory failure with hypoxia Status: Acute (3) Aspiration pneumonia: Code(s): J69.0 - Pneumonitis due to inhalation of food and vomit Status: Acute (4) Ischemic stroke: Code(s): I63.9 - Cerebral infarction, unspecified Status: Acute (5) Type 2 diabetes mellitus with hyperglycemia: Code(s): E11.65 - Type 2 diabetes mellitus with hyperglycemia Status: Acute (6) Hypertension: Code(s): I10 - Essential (primary) hypertension Status: Acute (7) Dementia: Code(s): F03.90 - Unspecified dementia, unspecified severity, without behavioral disturbance, psychotic disturbance, mood disturbance, and anxiety Status: Acute Subjective Date/time seen: 11/05/22 13:15 Interval history: TelePC w/ client application support engineer at bedside. Remains comfortable. Review of Systems Review of Systems: ROS unobtainable: Yes unobtainable due to medical condition Exam Narrative: Unresponsive to verbal or tactile stimuli. Objective Data Vital Signs Vital Signs: Vital Signs - 24 hr 11/05/22 20:00 11/05/22 20:00 11/06/22 07:59 Temperature 97.5 F L Pulse Rate 78 71 80 Respiratory Rate 12 20 10 L Blood Pressure 124/58 L Pulse Oximetry 77 L 77 L 81 L Oxygen Delivery Nasal Cannula Nasal Cannula Oxygen Flow Rate 2 2 Intake/Output Intake/Output: Intake & Output 11/03/22 11/04/22 11/05/22 11/06/22 23:59 23:59 23:59 23:59 Intake Total 0 60 100 Output Total 1700 450 50 Balance -1700 -390 50 Meds/Results Medications: Active Medications Generic Name Dose Route Start Last Admin Trade Name Freq PRN Reason Stop Dose Admin Acetaminophen 1,000 mg 11/03/22 14:56 11/04/22 18:19 Acetaminophen Elixir 325 Mg/10.15 Ml Udc FEED TUBE 1,000 mg Q6H PRN Administration fever 101 or greater Artificial Tears 1 drop 11/03/22 14:00 Artificial Tears Ophth Soln 15 Ml Bottle EACH EYE Q12H PRN Dry Eye(s) Bisacodyl 10 mg 11/03/22 13:30 Bisacodyl 10 Mg Suppository RECTAL DAILY PRN Constipation Diazepam 5 mg 11/03/22 13:35 11/03/22 14:05 Diazepam Inj (*Crx) 10 Mg/2 Ml Syringe IV PUSH 5 mg Q4H PRN Administration COMFORT Glycopyrrolate 0.1 mg 11/03/22 13:30 11/03/22 14:09 Glycopyrrolate Inj (*Sp) 0.2 Mg/Ml Vial IV PUSH 0.1 mg Q4H PRN Administration secretions Morphine Sulfate 50 mg/ Sodium 100 mls @ 2 mls/hr 11/03/22 14:00 11/05/22 15:03 Chloride IV CONT 1 mg/hr .Q24H LENKA 2 mls/hr Administration 1 MG/HR Morphine Sulfate 2 mg 11/03/22 13:30 11/04/22 14:11 Morphine Sulfate (*Crx) 2 Mg/Ml Inj IV PUSH 2 mg Q2H PRN Administration Pain Prochlorperazine Edisylate 10 mg 11/03/22 13:30 Prochlorperazine Edisylate 10 Mg/2 Ml Vial IV PUSH Q6H PRN Nausea And Vomiting
[2022-11-06] MEDS: MORPHINE SULFATE INJ (*CRX) 50 MG in SODIUM CHLORIDE 0.9% IV 95 ML IV CONT (13:18)
[2022-11-06 20:00] VITALS: PULSE 80; RESP 10; O2SAT 74
[2022-11-06 20:08] VITALS: BP 98/51; PULSE 80; RESP 10; O2SAT 74
--- NOTE | 2022-11-06 23:59 | PM.IMPN ---
Progress Note: A&P Assessment and Plan (1) Palliative care encounter: Code(s): Z51.5 - Encounter for palliative care Status: Acute Assessment and Plan: Meets inpatient hospice criteria due to requiring continuous IV morphine for control of dyspnea Remainder of palliative regimen as ordered (2) Acute respiratory failure with hypoxia: Code(s): J96.01 - Acute respiratory failure with hypoxia Status: Acute (3) Aspiration pneumonia: Code(s): J69.0 - Pneumonitis due to inhalation of food and vomit Status: Acute (4) Ischemic stroke: Code(s): I63.9 - Cerebral infarction, unspecified Status: Acute (5) Type 2 diabetes mellitus with hyperglycemia: Code(s): E11.65 - Type 2 diabetes mellitus with hyperglycemia Status: Acute (6) Hypertension: Code(s): I10 - Essential (primary) hypertension Status: Acute (7) Dementia: Code(s): F03.90 - Unspecified dementia, unspecified severity, without behavioral disturbance, psychotic disturbance, mood disturbance, and anxiety Status: Acute Subjective Date/time seen: 11/06/22 13:15 Interval history: Tele PC visit. Remains comfortable. Review of Systems Review of Systems: ROS unobtainable: Yes unobtainable due to medical condition Exam Narrative: Unresponsive to verbal or tactile stimuli. Objective Data Vital Signs Vital Signs: Vital Signs - 24 hr 11/06/22 07:59 11/06/22 20:08 11/06/22 20:00 Temperature 97.5 F L Pulse Rate 80 80 80 Respiratory Rate 10 L 10 L 10 L Blood Pressure 124/58 L 98/51 L Pulse Oximetry 81 L 74 L 74 L Oxygen Delivery Room Air Intake/Output Intake/Output: Intake & Output 11/03/22 11/04/22 11/05/22 11/06/22 23:59 23:59 23:59 23:59 Intake Total 0 60 100 100 Output Total 1700 450 50 Balance -1700 -390 50 100 Meds/Results Medications: Active Medications Generic Name Dose Route Start Last Admin Trade Name Freq PRN Reason Stop Dose Admin Acetaminophen 1,000 mg 11/03/22 14:56 11/04/22 18:19 Acetaminophen Elixir 325 Mg/10.15 Ml Udc FEED TUBE 1,000 mg Q6H PRN Administration fever 101 or greater Artificial Tears 1 drop 11/03/22 14:00 Artificial Tears Ophth Soln 15 Ml Bottle EACH EYE Q12H PRN Dry Eye(s) Bisacodyl 10 mg 11/03/22 13:30 Bisacodyl 10 Mg Suppository RECTAL DAILY PRN Constipation Diazepam 5 mg 11/03/22 13:35 11/03/22 14:05 Diazepam Inj (*Crx) 10 Mg/2 Ml Syringe IV PUSH 5 mg Q4H PRN Administration COMFORT Glycopyrrolate 0.1 mg 11/03/22 13:30 11/03/22 14:09 Glycopyrrolate Inj (*Sp) 0.2 Mg/Ml Vial IV PUSH 0.1 mg Q4H PRN Administration secretions Morphine Sulfate 50 mg/ Sodium 100 mls @ 2 mls/hr 11/03/22 14:00 11/06/22 13:18 Chloride IV CONT 1 mg/hr .Q24H LENKA 2 mls/hr Administration 1 MG/HR Morphine Sulfate 2 mg 11/03/22 13:30 11/04/22 14:11 Morphine Sulfate (*Crx) 2 Mg/Ml Inj IV PUSH 2 mg Q2H PRN Administration Pain Prochlorperazine Edisylate 10 mg 11/03/22 13:30 Prochlorperazine Edisylate 10 Mg/2 Ml Vial IV PUSH Q6H PRN Nausea And Vomiting
[2022-11-07 07:59] VITALS: PULSE 80; RESP 10; O2SAT 74
[2022-11-07 08:15] VITALS: BP 98/48; PULSE 69; RESP 20; TEMP 35.7; O2SAT 61
--- NOTE | 2022-11-07 15:28 | PC.NURSE ---
call to pharmacy for morphine drip med IV dose
--- NOTE | 2022-11-07 15:48 | PM.IMPN ---
Progress Note: A&P Assessment and Plan (1) Palliative care encounter: Code(s): Z51.5 - Encounter for palliative care Status: Acute Assessment and Plan: Meets inpatient hospice criteria due to requiring continuous IV morphine for control of dyspnea Remainder of palliative regimen as ordered (2) Acute respiratory failure with hypoxia: Code(s): J96.01 - Acute respiratory failure with hypoxia Status: Acute (3) Aspiration pneumonia: Code(s): J69.0 - Pneumonitis due to inhalation of food and vomit Status: Acute (4) Ischemic stroke: Code(s): I63.9 - Cerebral infarction, unspecified Status: Acute (5) Type 2 diabetes mellitus with hyperglycemia: Code(s): E11.65 - Type 2 diabetes mellitus with hyperglycemia Status: Acute (6) Hypertension: Code(s): I10 - Essential (primary) hypertension Status: Acute (7) Dementia: Code(s): F03.90 - Unspecified dementia, unspecified severity, without behavioral disturbance, psychotic disturbance, mood disturbance, and anxiety Status: Acute Subjective Date/time seen: 11/07/22 15:48 Interval history: Remains comfortable. Review of Systems Review of Systems: ROS unobtainable: Yes unobtainable due to medical condition Exam Narrative: Unresponsive to verbal or tactile stimuli. Chest Coarse crackles Heart RR Extr no edema, cool Neuro Rt. facial droop Objective Data Vital Signs Vital Signs: Vital Signs - 24 hr 11/06/22 20:08 11/06/22 20:00 11/07/22 07:59 Temperature Pulse Rate 80 80 80 Respiratory Rate 10 L 10 L 10 L Blood Pressure 98/51 L Pulse Oximetry 74 L 74 L 74 L Oxygen Delivery Room Air Nasal Cannula Oxygen Flow Rate 2 11/07/22 08:15 Temperature 96.3 F L Pulse Rate 69 Respiratory Rate 20 Blood Pressure 98/48 L Pulse Oximetry 61 L Oxygen Delivery Oxygen Flow Rate Intake/Output Intake/Output: Intake & Output 11/04/22 11/05/22 11/06/22 11/07/22 23:59 23:59 23:59 23:59 Intake Total 60 100 100 Output Total 450 50 Balance -390 50 100 Meds/Results Medications: Active Medications Generic Name Dose Route Start Last Admin Trade Name Freq PRN Reason Stop Dose Admin Acetaminophen 1,000 mg 11/03/22 14:56 11/04/22 18:19 Acetaminophen Elixir 325 Mg/10.15 Ml Udc FEED TUBE 1,000 mg Q6H PRN Administration fever 101 or greater Artificial Tears 1 drop 11/03/22 14:00 Artificial Tears Ophth Soln 15 Ml Bottle EACH EYE Q12H PRN Dry Eye(s) Bisacodyl 10 mg 11/03/22 13:30 Bisacodyl 10 Mg Suppository RECTAL DAILY PRN Constipation Diazepam 5 mg 11/03/22 13:35 11/03/22 14:05 Diazepam Inj (*Crx) 10 Mg/2 Ml Syringe IV PUSH 5 mg Q4H PRN Administration COMFORT Glycopyrrolate 0.1 mg 11/03/22 13:30 11/03/22 14:09 Glycopyrrolate Inj (*Sp) 0.2 Mg/Ml Vial IV PUSH 0.1 mg Q4H PRN Administration secretions Morphine Sulfate 50 mg/ Sodium 100 mls @ 2 mls/hr 11/03/22 14:00 11/06/22 13:18 Chloride IV CONT 1 mg/hr .Q24H LENKA 2 mls/hr Administration 1 MG/HR Morphine Sulfate 2 mg 11/03/22 13:30 11/04/22 14:11 Morphine Sulfate (*Crx) 2 Mg/Ml Inj IV PUSH 2 mg Q2H PRN Administration Pain Prochlorperazine Edisylate 10 mg 11/03/22 13:30 Prochlorperazine Edisylate 10 Mg/2 Ml Vial IV PUSH Q6H PRN Nausea And Vomiting
[2022-11-07] MEDS: MORPHINE SULFATE INJ (*CRX) 50 MG in SODIUM CHLORIDE 0.9% IV 95 ML IV CONT (15:57)
[2022-11-07 22:16] VITALS: BP 97/47; PULSE 73; RESP 26; TEMP 35.4; O2SAT 71
[2022-11-08 07:27] VITALS: O2SAT 71
[2022-11-08 10:08] VITALS: BP 73/39; PULSE 77; RESP 36; TEMP 35; O2SAT 84
[2022-11-08] MEDS: MORPHINE SULFATE (*CRX) 2 MG/ML INJ IV PUSH ×2 (10:14→14:27)
--- NOTE | 2022-11-08 11:47 | PCDIET ---
Nutrition screen for NPO x 5 days. Pt is on hospice care.
[2022-11-08] MEDS: GLYCOPYRROLATE INJ (*SP) 0.2 MG/ML VIAL 0.1 MG IV PUSH ×2 (12:04→18:42)
[2022-11-08] MEDS: MORPHINE SULFATE INJ (*CRX) 50 MG in SODIUM CHLORIDE 0.9% IV 95 ML IV CONT (14:50)
--- NOTE | 2022-11-08 16:05 | PM.IMPN ---
Progress Note: A&P Assessment and Plan (1) Palliative care encounter: Code(s): Z51.5 - Encounter for palliative care Status: Acute Assessment and Plan: Meets inpatient hospice criteria due to requiring continuous IV morphine for control of dyspnea Remainder of palliative regimen as ordered (2) Acute respiratory failure with hypoxia: Code(s): J96.01 - Acute respiratory failure with hypoxia Status: Acute (3) Aspiration pneumonia: Code(s): J69.0 - Pneumonitis due to inhalation of food and vomit Status: Acute (4) Ischemic stroke: Code(s): I63.9 - Cerebral infarction, unspecified Status: Acute (5) Type 2 diabetes mellitus with hyperglycemia: Code(s): E11.65 - Type 2 diabetes mellitus with hyperglycemia Status: Acute (6) Hypertension: Code(s): I10 - Essential (primary) hypertension Status: Acute (7) Dementia: Code(s): F03.90 - Unspecified dementia, unspecified severity, without behavioral disturbance, psychotic disturbance, mood disturbance, and anxiety Status: Acute Subjective Date/time seen: 11/08/22 16:05 Interval history: Tachypneic earlier today. Remains comfortable after morphine drip increased to 2 mg / hr. Review of Systems Review of Systems: ROS unobtainable: Yes unobtainable due to medical condition Exam Narrative: Unresponsive to verbal or tactile stimuli. Chest Coarse crackles Heart RR Extr no edema, cool Neuro Rt. facial droop Objective Data Vital Signs Vital Signs: Vital Signs - 24 hr 11/07/22 20:00 11/07/22 22:16 11/08/22 07:27 Temperature 95.7 F L Pulse Rate 73 Respiratory Rate 26 H Blood Pressure 97/47 L Pulse Oximetry 71 L 71 L Oxygen Delivery Nasal Cannula Nasal Cannula Oxygen Flow Rate 2 2 11/08/22 10:08 Temperature 95 F L Pulse Rate 77 Respiratory Rate 36 H Blood Pressure 73/39 L Pulse Oximetry 84 L Oxygen Delivery Oxygen Flow Rate Intake/Output Intake/Output: Intake & Output 11/05/22 11/06/22 11/07/22 11/08/22 23:59 23:59 23:59 23:59 Intake Total 100 100 85 45 Output Total 50 Balance 50 100 85 45 Meds/Results Medications: Active Medications Generic Name Dose Route Start Last Admin Trade Name Freq PRN Reason Stop Dose Admin Acetaminophen 1,000 mg 11/03/22 14:56 11/04/22 18:19 Acetaminophen Elixir 325 Mg/10.15 Ml Udc FEED TUBE 1,000 mg Q6H PRN Administration fever 101 or greater Artificial Tears 1 drop 11/03/22 14:00 Artificial Tears Ophth Soln 15 Ml Bottle EACH EYE Q12H PRN Dry Eye(s) Bisacodyl 10 mg 11/03/22 13:30 Bisacodyl 10 Mg Suppository RECTAL DAILY PRN Constipation Diazepam 5 mg 11/03/22 13:35 11/03/22 14:05 Diazepam Inj (*Crx) 10 Mg/2 Ml Syringe IV PUSH 5 mg Q4H PRN Administration COMFORT Glycopyrrolate 0.1 mg 11/03/22 13:30 11/08/22 12:04 Glycopyrrolate Inj (*Sp) 0.2 Mg/Ml Vial IV PUSH 0.1 mg Q4H PRN Administration secretions Morphine Sulfate 50 mg/ Sodium 100 mls @ 4 mls/hr 11/03/22 14:00 11/08/22 15:30 Chloride IV CONT 2 mg/hr .Q24H LENKA 4 mls/hr Infusion 2 MG/HR Morphine Sulfate 4 mg 11/08/22 15:24 Morphine Sulfate (*Crx) 2 Mg/Ml Inj IV PUSH Q2H PRN Pain Prochlorperazine Edisylate 10 mg 11/03/22 13:30 Prochlorperazine Edisylate 10 Mg/2 Ml Vial IV PUSH Q6H PRN Nausea And Vomiting
[2022-11-08] MEDS: MORPHINE SULFATE (*CRX) 2 MG/ML INJ 4 MG IV PUSH (18:10)
[2022-11-08 22:05] VITALS: BP 66/40; PULSE 93; RESP 18; TEMP 36.2; O2SAT 83
[2022-11-09 07:40] VITALS: BP 72/37; PULSE 101; RESP 30; TEMP 36; O2SAT 79
[2022-11-09] MEDS: GLYCOPYRROLATE INJ (*SP) 0.2 MG/ML VIAL 0.1 MG IV PUSH (07:48)
[2022-11-09] MEDS: MORPHINE SULFATE (*CRX) 2 MG/ML INJ 4 MG IV PUSH (07:49)
[2022-11-09] MEDS: diazePAM INJ (*CRX) 10 MG/2 ML SYRINGE 5 MG IV PUSH (07:50)
--- NOTE | 2022-11-09 16:27 | P.DN_ITS ---
Discharge Summary Date and Time Date of : 11/09/22 Time of : 08:00 Provider Pronounced By: Neema Zambrano Probable Cause of Probable Cause of : Acute hypoxemic respiratory failure due to aspiration pneumonitis due to dysphagia due to prior stroke Summary Hospital Course: admitted to inpatient hospice service due to uncontrolled dyspnea Medications titrated to comfort. Mrs. Jerry peacefully. Additional Data Confirmation of as documented by pronouncing clinician: Pupillary Reflex, Palpable Pulses, Response to Stimuli, Heart Tones and Breath Sounds Name of Provider Notified: Dr. Romero Time Provider Notified: 08:05 Provider Requests Autopsy: No Family Requests Autopsy: No Human Resources Operations Coordinator Notified: Yes Date [facility] Notified of : 11/09/22 Time [facility] Notified of : 08:25
== END 2022-11-09 08:00 | disposition expired | DRG 951 ==
PROVIDERS: Admitting Provider Internal Medicine; PCP Internal Medicine; Visit Provider Internal Medicine
DX: Z51.5 Encounter for palliative care (principal); J96.01 Acute respiratory failure with hypoxia; J69.0 Pneumonitis due to inhalation of food and vomit; I10 Essential (primary) hypertension; E11.9 Type 2 diabetes mellitus without complications; E78.5 Hyperlipidemia, unspecified; R13.10 Dysphagia, unspecified; F03.90 Unspecified dementia, unspecified severity, without behavioral disturbance, psychotic disturbance, mood disturbance, and anxiety; F32.A Depression, unspecified; I69.320 Aphasia following cerebral infarction; I69.391 Dysphagia following cerebral infarction; Z93.1 Gastrostomy status
CPT/HCPCS: A9270; J2270; J3360